=== PATIENT | male | born 1970 | race Caucasian/White ===

== ENCOUNTER 2018-03-30 15:39 | Emergency (ER) | payer OTHER ==
[~2018-03-30] VITALS: Ht 180.3 cm; Wt 92.5 kg
[2018-03-30 15:40] VITALS: BP 135/95
[2018-03-30] MEDS ORDERED: NAPR-56 PO (16:19)
[2018-03-30] MEDS ORDERED: PRED5TAB PO (16:19)
[2018-03-30] MEDS ORDERED: CYCL-1 PO (16:19)
[2018-03-30] MEDS ORDERED: dexamethasone 4mg tablet PO ONE (16:20)
[2018-03-30] MEDS ORDERED: cyclobenzaprine 10mg tablet PO ONE (16:20)
[2018-03-30] MEDS ORDERED: naproxen 500mg tablet PO ONE (16:20)
== END 2018-03-30 16:40 | disposition home or self-care (01) ==
LOC: ER 15:40
DX: S39.012A Strain of muscle, fascia and tendon of lower back, initial encounter (principal); M54.41 Lumbago with sciatica, right side; M62.830 Muscle spasm of back; G89.29 Other chronic pain; Z79.899 Other long term (current) drug therapy; X58.XXXA Exposure to other specified factors, initial encounter; Y93.89 Activity, other specified; Y92.89 Other specified places as the place of occurrence of the external cause; Y99.8 Other external cause status
CPT/HCPCS: 99284; J8540

== ENCOUNTER 2018-10-13 14:29 | Emergency (ER) | payer BC, OTHER ==
[~2018-10-13] VITALS: Ht 180.3 cm; Wt 94.0 kg
[~2018-10-13 14:29] MED LIST: CYCL-1 PO; PRED5TAB PO
[2018-10-13 14:47] VITALS: BP 147/98
[2018-10-13] MEDS ORDERED: LIDOcaine 1% w/epiNEPHrine 1:200,000 30ml vial IJ ONE (15:25)
[2018-10-13] MEDS ORDERED: LIDOcaine 1.5% w/epinephrine 1:200,000 5ml ampul IJ ONE (15:25)
[2018-10-13] MEDS ORDERED: TETanus/Pertussis (Acell)/Diphther VAC/PF (Tdap-Adult) 0.5ml syringe IM ONE (15:25)
== END 2018-10-13 16:09 | disposition home or self-care (01) ==
LOC: ER 14:29
DX: S61.216A Laceration without foreign body of right little finger without damage to nail, initial encounter (principal); S61.214A Laceration without foreign body of right ring finger without damage to nail, initial encounter; G89.29 Other chronic pain; Z79.899 Other long term (current) drug therapy; W25.XXXA Contact with sharp glass, initial encounter; Y93.89 Activity, other specified; Y92.89 Other specified places as the place of occurrence of the external cause; Y99.9 Unspecified external cause status
CPT/HCPCS: 12001; 90471; 90715; 99284; J3490

== ENCOUNTER 2023-02-04 16:29 | Emergency (ER) | payer OTHER, BC ==
[~2023-02-04] VITALS: Ht 180.3 cm; Wt 95.5 kg
[2023-02-04 16:38] VITALS: BP 144/82
[2023-02-04] MEDS ORDERED: HYDROcodone/acetaminophen 10/325mg tab PO ONE (16:50)
== END 2023-02-04 18:27 | disposition home or self-care (01) ==
LOC: ER 16:29
DX: S46.911A Strain of unspecified muscle, fascia and tendon at shoulder and upper arm level, right arm, initial encounter (principal); S70.11XA Contusion of right thigh, initial encounter; G89.29 Other chronic pain; M54.9 Dorsalgia, unspecified; V86.96XA Unspecified occupant of dirt bike or motor/cross bike injured in nontraffic accident, initial encounter; Y93.89 Activity, other specified; Y92.89 Other specified places as the place of occurrence of the external cause; Y99.8 Other external cause status
CPT/HCPCS: 73030; 73502; 73552; 99284; A4565